=== PATIENT | female | born 1930 | race Caucasian/White ===

== ENCOUNTER → 2016-10-09 | Day surgery (SDC) | payer MEDICARE ==
[2016-10-03 14:52] VITALS: BMI 34.0
--- NOTE | 2016-10-08 11:23 | SC.ANESEVA ---
Anesthesia Eval & Plan ([facility]) - Providers Stated Procedure: left eye - Medications/Allergies Allergies: Allergies codeine Allergy (Verified 10/03/16 14:46) Nausea/Vomiting NEAR SYNCOPY Current Medication List: Reviewed - Focused Physical Exam NPO since: Since after Midnight Mallampati: Class II Thyromental Distance: Greater than 3 Neck: Limited Range of Motion Dental: Normal - no significant findings Cardiovascular/Chest: Normal (RRR no mumurs or rubs.) Respiratory: Lungs clear. negative: Wheezing Any problems with anesthesia, including nausea and vomiting?: No Any relatives with a history of Malignant Hyperthermia?: No Prone to Motion Sickness: No Other: Diagnoses COMBINED FORMS OF AGE-RELATED CATARACT, LEFT EYE (10/09/16) Allergies Allergy/AdvReac Type Severity Reaction Status Date / Time codeine Allergy Nausea/Vomi Verified 10/03/16 14:46 ting Home Medications Medication Instructions Recorded Last Taken Type Calcium Carb/Vit D3/Minerals 1 each PO QAM 03/30/14 08/27/16 History [Calcium 1,200 mg Tablet Chew] Doxepin HCl 100 mg PO QHS 03/30/14 08/26/16 History Flaxseed Oil [Flax Seed Oil] 2 tab PO DAILY 03/30/14 08/27/16 History Lorazepam [Ativan] 1 mg PO BID PRN 03/30/14 03/31/14 22:30 History Nebivolol HCl [Bystolic] 10 mg PO HS 03/30/14 08/26/16 History Aspirin [Aspirin EC] 81 mg PO QAM 08/27/16 08/27/16 History Beta-Carotene(A) W-C & E/Min 1 tab PO QAM 08/27/16 08/27/16 History [Ocuvite Tablet (1000IU/200mg/60IU)] Cholecalciferol (Vitamin D3) 1,000 unit PO QAM 08/27/16 08/27/16 History [Vitamin D3] Fish Oil/Dha/Epa [Fish Oil 1,200 2 each PO QAM 08/27/16 08/27/16 History mg Fish Oil] Ondansetron HCl [Zofran] 4 mg PO Q6H PRN #20 tab 08/27/16 Unknown Rx Ubidecarenone [Coq-10] 400 mg PO QAM 08/27/16 08/27/16 History Height and Weight Patient's height 5 ft Patient's weight 79.09 kg Weight (Calculated Kilograms) 79.090 BMI 34.0 - Anesthetic Plan Anesthesia Type: MAC ASA Class: 3 - Focused Review of Systems Cardiac History: Yes: Hx Hypertension, Hx Cardiac Disorders HEENT: Yes: Cataracts, Hx Vision Problem (GLASSES), Other HEENT Problems Respiratory: Yes: Hx Snoring Gastrointestinal: Yes: Hx Colonoscopy No: Hx Gastrointestinal Disorders Neurological/Musculoskeletal: No: Hx Neurological Disorders Blood/Autoimmune: No: Hx Blood Transfusions Smoking Status: Never smoker Surgical History: Yes: Cholecystectomy
[~2016-10-09] MED LIST: DEXAMETHASONE 4 MG/ML VIAL IV PRN; DIAZEPAM 5 MG TAB PO PRN; FENTANYL 100 MCG/2 ML VIAL ONE; LABETALOL 20 MG/4 ML SYRINGE IV PRN; MIDAZOLAM 2 MG/2 ML VIAL ONE; ONDANSETRON HCL 4 MG/2 ML VIAL IV PRN; PHENYLEPHRINE 10 % OPHTH SOLN 5 ML BOT OP EYE ONE; SCOPOLAMINE TRANSDERMAL PATCH TOP ONE; TETRACAINE 0.5% 2 ML OPHTH SOLN OP EYE ONE; TETRACAINE 0.5% 2 ML OPHTH SOLN OP EYE PRN; TROPICAMIDE 1% OPHTH SOLN 2 ML BOTTLE OP EYE ONE; Vancomycin 10 MG, Phenylephrine 1,000 MCG in Balanced Salt Solution 500 ML IO ONE; hydrALAZINE 20 MG/ML VIAL IV PRN
[2016-10-09 10:43] VITALS: TEMP 97.2
--- NOTE | 2016-10-09 11:48 | HIMOPRPT ---
DATE OF PROCEDURE: 10/09/16 PREOPERATIVE DIAGNOSIS: Cataract left eye. POSTOPERATIVE DIAGNOSIS: Cataract left eye. PROCEDURE: Cataract extraction by phacoemulsification of the left eye SURGEON: Keren Sellers MD. ANESTHESIA: IV Sedation/Topical. COMPLICATIONS: None. PRE-OPERATIVE EVALUATION: The patient has been examined and deemed medically stable for cataract extraction with no apparent need for inpatient observation; outpatient setting is appropriate. Patient appears to be oriented to time, place and person. PROCEDURE IN DETAIL: The correct eye confirmed by patient, doctor, staff and paperwork. The operative eye was then marked by the doctor in the preoperative area. Eye drops were instilled into the operative eye to dilate the pupil. The patient was transported to the operating room and was placed in the supine position. A time out was performed before the beginning of the procedure. The operative eye was prepped and draped in the usual sterile fashion for ophthalmic surgery, taking care to isolate the lashes from the surgical field. Topical anesthetic drops were instilled into the operative eye. A lid speculum was placed. Betadine 5% was instilled in the operative eye for antiseptic. Microscope was brought into place for use throughout the case. The eye was inspected. A paracentesis incision was created with a side port knife. The temporal limbal corneal incision was performed with a herman blade. Viscoelastic was injected into the anterior chamber. Capsule forceps were used to create a capsulorhexis. Hydrodissection was performed with BSS. The nucleus was removed by phacoemulsification. Phaco time is noted below. The remaining cortical material was removed by I&A. The capsular bag was noted to be intact and distended with viscoelastic. The Intraocular lens was placed into the intact bag and centered without difficulty. The remaining viscoelastic was removed by I&A. Betadine 5% drops were placed to inspect wound and for antisepsis. Inspection revealed watertight wounds. The lid speculum was removed. Postoperative medications were instilled into the eye and a shield secured over the operative eye. IOL Type [id number] SN [id number] IOL Power 23.5 CDE 4.31 Discharge Summary: There were no complications and the patient was taken to the postoperative area in good condition. Postoperative instructions and outpatient follow up time were given.
[2016-10-09 11:50] VITALS: BP 134/76; PULSE 61
--- NOTE | 2016-10-09 11:51 | SC.ANESPOS ---
Post-Anesthesia Note LOC: Fully Awake Post-Anesthesia Assessment: Awake, Returned to Baseline, Hemodynamically Stable , Pain Control Adequate Phase I & II Recovery Complete: Yes Apparent Anesthesia Complication: No : N - Vital Signs Blood Pressure: 134/76 Pulse: 61 Resp Rate: 18 O2 Sat: 94 Temp: 97.2 F
== END ==
LOC: CPSC 10:09
PROVIDERS: ATTEND Ophthalmology
PROC: 08RK3JZ Replacement of Left Lens with Synthetic Substitute, Percutaneous Approach (ICD-10-PCS; principal; 2016-10-09 12:00)
DX: H25.812 Combined forms of age-related cataract, left eye (principal); I10 Essential (primary) hypertension; M19.90 Unspecified osteoarthritis, unspecified site; F41.9 Anxiety disorder, unspecified; Z79.899 Other long term (current) drug therapy
CPT/HCPCS: 66984; J2250; J3010; V2632